=== PATIENT | male | born 2000 | race Caucasian/White ===

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

== ENCOUNTER → 2020-10-24 | Outpatient (CLI) | payer MEDICAID ==
--- NOTE | 2020-10-25 08:50 | US ---
EXAMINATION TYPE: US thyroid st tissue head/neck DATE OF EXAM: 10/24/2020 COMPARISON: NONE CLINICAL HISTORY: E01.0 Thyromegaly. No abnormal labs. GLAND SIZE: Right Lobe: 5.2 x 2.5 x 2.1 cm Overall Parenchyma: heterogenous Left Lobe: 4.8 x 2.8 x 1.9 cm Overall Parenchyma: heterogeneous Isthmus Thickness: 0.3 cm NODULES RIGHT: # of nodules measured on right: 0 LEFT: # of nodules measured on left: 1. 0.4 X 0.4 x 0.3 cm, lower mid, cystic or almost completely cystic, anechoic nodule, which is wid er than tall, with smooth margins, with nonshadowing echogenic foci. Prior size: no prior ISTHMUS: # of nodules measured in the isthmus: 0 Bilateral neck scanned, no evidence of lymphadenopathy. IMPRESSION: Nonspecific thyroid nodularity.
== END | disposition home or self-care (01) ==
LOC: RADUSWWP 15:42
PROVIDERS: ATTEND Internal Medicine
DX: E01.0 Iodine-deficiency related diffuse (endemic) goiter (principal)
CPT/HCPCS: 76536